=== PATIENT | male | born 2000 | race Caucasian/White ===

== ENCOUNTER 2021-02-27 01:17 | Emergency (ER) | payer OTHER ==
[2021-02-27] MEDS ORDERED: LODINE CAP 300300 MG PO (03:09)
[2021-02-27] MEDS ORDERED: NORFLEX 100 MG100 MG PO (03:09)
== END 2021-02-27 03:15 | disposition home or self-care (01) ==
LOC: ER1 01:17
DX: S09.90XA Unspecified injury of head, initial encounter (principal); S16.1XXA Strain of muscle, fascia and tendon at neck level, initial encounter; Z88.0 Allergy status to penicillin; Z88.2 Allergy status to sulfonamides; W22.8XXA Striking against or struck by other objects, initial encounter; Y92.009 Unspecified place in unspecified non-institutional (private) residence as the place of occurrence of the external cause
CPT/HCPCS: 99283

== ENCOUNTER 2022-03-23 21:30 | Emergency (ER) | payer OTHER ==
[~2022-03-23 21:30] MED LIST: CITRATE OF MAG296 ML PO; LODINE CAP 300300 MG PO; NORFLEX 100 MG100 MG PO
[2022-03-23] MEDS ORDERED: ENULOSE10 GM/15 M PO (22:41)
== END 2022-03-23 22:49 | disposition home or self-care (01) ==
LOC: ER1 21:30
DX: K59.00 Constipation, unspecified (principal)
CPT/HCPCS: 74018; 99283

== ENCOUNTER 2022-05-14 08:55 | Emergency (ER) | payer OTHER ==
[~2022-05-14 08:55] MED LIST changes: +ENULOSE10 GM/15 M PO
[2022-05-14 10:22] LABS: HEMOGLOBIN 14.7 gm/dl (14.0-17.5); RED BLOOD COUNT 4.8 M/UL (4.20-5.50); WHITE BLOOD COUNT 5.3 K/UL (4.5-11.0)
[2022-05-14 10:47] LABS: BUN/CREATININE RATIO 14 (0-10)
== END 2022-05-14 14:36 | disposition home or self-care (01) ==
LOC: ER1 08:55
DX: R10.9 Unspecified abdominal pain (principal); R10.819 Abdominal tenderness, unspecified site; Z87.442 Personal history of urinary calculi
CPT/HCPCS: 80053; 81001; 83690; 85025; 85379; 99284